=== PATIENT | female | born 1950 | race Caucasian/White ===

== ENCOUNTER 2022-07-15 10:37 | Day surgery (SDC) | payer MEDICARE, BC, SELFPAY ==
[2022-07-13 09:02] VITALS: BMI 46.0
--- NOTE | 2022-07-14 10:57 | P.CONAN_ITS ---
Documented by User: Blaire Rodriguez NP 07/14/22 10:58 HPI - Anesthesia Eval Consult details Narrative: 71yo F for Bilateral Eye Muscle Lateral rectus Recession PCP cleared [facility] Past Medical History Medical History (Updated 07/14/22 @ 10:48 by Mandy Hickman, [email or web address]) Acute recurrent sinusitis Elevated cholesterol Elevated sedimentation rate HTN (hypertension) Obesity Osteopenia Restless leg Sleep apnea Type 2 diabetes mellitus Surgical History Surgical History (Updated 07/10/22 @ 15:04 by Maureen Daugherty RN) H/O colonoscopy Hx of blepharoplasty Social History Social History Are you a primary customer care team coach to a significant other at home: No Do you presently have visiting nurse or other home services: No Patient Tobacco Use Status: Never used Tobacco Use of substances other than those prescribed or required for medical reasons: No Have you been hit, kicked, punched, or otherwise hurt by someone within the past year? If so, by whom?: No Are you DNR?: No Advance Directives Information Provided: Yes (as above noted) Advance Directives on File: No Recently lost weight without trying: No Eating poorly because of decreased appetite: No Nutrition Risks: No Nutritional Risk Poor oral hygiene: No Meds Allergies Allergy/AdvReac Type Severity Reaction Status Date / Time No Known Allergies Allergy Verified 07/10/22 15:02 Home Medications Medication Instructions Recorded Confirmed Last Taken Type amlodipine 5 mg tablet 5 mg PO DAILY 07/10/22 07/10/22 Unknown History aspirin 81 mg tablet,delayed 81 mg PO DAILY 07/10/22 07/10/22 Unknown History release gabapentin 100 mg capsule 200 mg PO BEDTIME 07/10/22 07/10/22 Unknown History lisinopril 20 1 tab PO DAILY 07/10/22 07/10/22 Unknown History mg-hydrochlorothiazide 25 mg tablet metformin 500 mg tablet 1,000 mg PO BID 07/10/22 07/10/22 07/15/22 History ropinirole 0.25 mg tablet 0.25 mg PO BEDTIME 07/10/22 07/10/22 Unknown History simvastatin 20 mg tablet 20 mg PO BEDTIME 07/10/22 07/10/22 Unknown History Exam Exam Date and Time: July 14, 2022 1057 Height,Weight and Vital Signs: Height 5 ft 2 in Weight 114.305 kg Assessment and Plan Assessment Anesthesia Assessment: Chart Reviewed Documented by User: Felipe Licona MD 07/15/22 12:01 [facility] Past Medical History Medical History (Updated 07/14/22 @ 10:48 by Mandy Hickman RN) Acute recurrent sinusitis Elevated cholesterol Elevated sedimentation rate HTN (hypertension) Obesity Osteopenia Restless leg Sleep apnea Type 2 diabetes mellitus Family History Family history of problems with anesthesia: No Surgical History Surgical History (Updated 07/10/22 @ 15:04 by Maureen Daugherty RN) H/O colonoscopy Hx of blepharoplasty History of Problems with Anesthesia: No Social History Social History Are you a primary customer care team coach to a significant other at home: No Do you presently have visiting nurse or other home services: No Patient Tobacco Use Status: Never used Tobacco Use of substances other than those prescribed or required for medical reasons: No Have you been hit, kicked, punched, or otherwise hurt by someone within the past year? If so, by whom?: No Are you DNR?: No Advance Directives Information Provided: Yes (as above noted) Advance Directives on File: No Recently lost weight without trying: No Eating poorly because of decreased appetite: No Nutrition Risks: No Nutritional Risk Poor oral hygiene: No Meds Allergies Allergy/AdvReac Type Severity Reaction Status Date / Time No Known Allergies Allergy Verified 07/10/22 15:02 Home Medications Medication Instructions Recorded Confirmed Last Taken Type amlodipine 5 mg tablet 5 mg PO DAILY 07/10/22 07/10/22 Unknown History aspirin 81 mg tablet,delayed 81 mg PO DAILY 07/10/22 07/10/22 Unknown History release gabapentin 100 mg capsule 200 mg PO BEDTIME 07/10/22 07/10/22 Unknown History lisinopril 20 1 tab PO DAILY 07/10/22 07/10/22 Unknown History mg-hydrochlorothiazide 25 mg tablet metformin 500 mg tablet 1,000 mg PO BID 07/10/22 07/10/22 07/15/22 History ropinirole 0.25 mg tablet 0.25 mg PO BEDTIME 07/10/22 07/10/22 Unknown History simvastatin 20 mg tablet 20 mg PO BEDTIME 07/10/22 07/10/22 Unknown History Exam Airway Mallampati Class: I TM Dist: >3cm Neck ROM: Full Heart: ok Lungs: ok Assessment and Plan Final Anesthetic Review Family History of Problems with Anesthesia: No History of Problems with Anesthesia: No NPO: Yes ASA Class: III Final Preanesthetic Review: No Changes in Pt Med Stat, Meds/Allgs Chart Reviewed, Consent Obtained/Reviewed and Anes Risks/Benef Reviewed Patient Risk: Intermediate Procedure Risk: Intermediate Anesthetic Plan Anesthetic Plan: GA and Agree w/ Assess. and Plan Disposition: Standard PACU
[2022-07-15 10:56] VITALS: BP 151/81; PULSE 82; RESP 16; TEMP 36.4; O2SAT 97
[2022-07-15] MEDS: Lactated Ringers 1,000 ML 100 ML IVCONT (11:07)
[2022-07-15 11:23] LABS: Glucose, Whole Blood 137 mg/dL (60-115)
--- NOTE | 2022-07-15 13:17 | P.OPHTHAL_ITS ---
Ophthalmology Operative Note Date of Service: 07/15/22 Narrative: diagnosis exotropia. Procedure bilateral lateral rectus recessions of [address] Whitehead. Anesthesia general. Complications none. The patient was brought to the operating room placed under general anesthesia. The eyes were prepped and draped in the usual sterile ophthalmic fashion. A lid speculum was placed in the right eye and incisions made at bare sclera in the inferotemporal fornix. The lateral rectus muscle was hooked and secured with a double-armed Vicryl suture. The muscle was disinserted the globe and reattached to a position 5 mm behind the original insertion. Conjunctiva was closed with in terrupted Vicryl sutures. An identical procedure was then performed on the left eye. The patient was then awoken from general anesthesia and discharged to postoperative recovery in good condition.
[2022-07-15 13:22] VITALS: BP 118/73; PULSE 74; RESP 18; TEMP 36.3; O2SAT 100
[2022-07-15 13:27] VITALS: BP 127/72; PULSE 64; RESP 10; O2SAT 100
[2022-07-15 13:32] VITALS: BP 128/65; PULSE 68; RESP 12; O2SAT 96
[2022-07-15 13:37] VITALS: BP 114/69; PULSE 69; RESP 14; O2SAT 95
[2022-07-15] MEDS: oxyCODONE HCl Immed Release 5 MG TABLET PO (13:51)
[2022-07-15 13:52] VITALS: BP 132/70; PULSE 67; RESP 14; O2SAT 95
== END 2022-07-15 15:00 | disposition home or self-care (01) ==
PROVIDERS: PCP Internal Medicine; Visit Provider Ophthalmology
PROC: (CPT 67311; principal; 2022-07-15 11:50)
DX: H53.2 Diplopia (principal); H50.10 Unspecified exotropia; E78.5 Hyperlipidemia, unspecified; I10 Essential (primary) hypertension; G47.33 Obstructive sleep apnea (adult) (pediatric); G25.81 Restless legs syndrome; E11.9 Type 2 diabetes mellitus without complications; Z79.84 Long term (current) use of oral hypoglycemic drugs; Z79.82 Long term (current) use of aspirin; Z79.899 Other long term (current) drug therapy
CPT/HCPCS: 67311; 82947; J0131; J2405; J3010